=== PATIENT | male | born 1960 | race Two or more races ===

== ENCOUNTER 2019-06-16 10:00 | Inpatient (IN) | payer OTHER ==
[~2019-06-16] VITALS: Ht 170.2 cm; Wt 68.0 kg
[2019-06-16] MEDS ORDERED: JANUMET XR 50-1 EAC1 PO (12:10)
[2019-06-22] MEDS ORDERED: LEVAQUIN500 MG PO (08:24)
[2019-06-22] MEDS ORDERED: INTESTINEX680 M1 PO (08:25)
== END 2019-06-22 10:31 | disposition home or self-care (01) | DRG 349 ==
LOC: EDSTATUS 10:00 → ADM 10:00 → O/R 06-21 06:22 → SURH 06-21 11:49
PROVIDERS: ADMIT Surgery
PROC: 3E0T3BZ Introduction of Anesthetic Agent into Peripheral Nerves and Plexi, Percutaneous Approach (ICD-10-PCS; 2019-06-21)
PROC: 0DBP7ZZ Excision of Rectum, Via Natural or Artificial Opening (ICD-10-PCS; principal; 2019-06-21 08:15)
DX: C20 Malignant neoplasm of rectum (principal); E11.9 Type 2 diabetes mellitus without complications; Z79.4 Long term (current) use of insulin